=== PATIENT | female | born 1935 | race Caucasian/White ===

== ENCOUNTER → 2023-01-01 | Outpatient (CLI) | payer MEDICARE, SELFPAY ==
--- NOTE | 2023-01-01 13:15 | RAD_ITS ---
INDICATION: follow up pneumonia EXAMINATION/TECHNIQUE: X-RAY - XR Chest 2 Views COMPARISON: November 21, 2022 chest x-ray FINDINGS: LINES/DEVICES: Tunneled chest port, right chest, with the tip projecting over the proximal cavoatrial junction. LUNGS: Subtle reticulations in the periphery of the right upper lobe, adjacent to the right minor fissure which appears elevated. Correlate clinically for prior surgery. Lungs are otherwise clear. 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 MEDIASTINUM AND CARDIOVASCULAR STRUCTURES: Normal size and contour of the cardiomediastinal silhouette. No evidence of pulmonary vascular congestion. Significant calcifications the region of the mitral valve. Correlate for valvular disease. BONES AND SOFT TISSUES: No fracture or focal osseous lesion. RAD/Chest PA and Lateral IMPRESSION: 1. No acute cardiopulmonary disease. 2. Subtle reticulations right upper lobe with elevated right minor fissure suggesting postsurgical changes and/or scarring. 3. Significant mitral valvular calcifications. Electronically Signed: Parish Salter DO at 23:16 EDT ,
--- NOTE | 2023-01-01 16:08 | PFTCOMP ---
COMPLETE PULMONARY FUNCTION TEST INTERPRETATION Brief HPI: Patient is an 87-year-old female, currently under the care of Dr. Espinoza, who presents to [facility] for complete pulmonary function tests secondary to diagnosis of abnormal chest CT. Respiratory therapist reports good effort and reproducible results. Interpretation: Forced expiration spirometry shows a mild large airways obstructive ventilatory defect with an FEV1 of 90% predicted. There is no significant bronchodilator response by strict ATS criteria. Spirograms are of good quality and plateau slowly, indicating slowly emptying areas of the lungs. The respiratory flow volume loop shows decreased expiratory flow rates at high lung volumes consistent with small airways obstruction. Lung volumes by body plethysmography show an elevated total lung capacity at 5.8 L, 136% predicted. FRC and RV are elevated out of proportion. Lung volume measurements are consistent with hyperinflation and air-trapping. Diffusion capacity by carbon monoxide is normal at 83% predicted. The airway resistance is normal. No previous pulmonary function tests were available for review. 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
== END | disposition home or self-care (01) ==
PROVIDERS: PCP Internal Medicine; Referring Provider Internal Medicine; Visit Provider Internal Medicine
DX: J18.9 Pneumonia, unspecified organism (principal); D46.9 Myelodysplastic syndrome, unspecified
CPT/HCPCS: 71046; 94060; 94726; 94729